=== PATIENT | female | born 1990 | race Caucasian/White ===

== ENCOUNTER 2024-03-26 18:51 | Emergency (ER) | payer OTHER ==
--- NOTE | 2024-03-26 22:23 | ED Physician Documentation ---
History of Present Illness - Stated complaint Stated Complaint: L TOE PX - Chief complaint Chief Complaint: Ext Problem - Additonal information Additional information: 33-year-old female presents emergency department for left toe inflammation and swelling and pain for concerns of ingrown toenail. NO fevers or chills, no sytemic, does not have diabetes, prone to get ingrown toe nails PD PAST MEDICAL HISTORY - Past Medical History Past Medical History: No Cardiovascular: None Respiratory: None Neuro: None Endocrine/Autoimmune: None GI: None NURSE TRANSITION: None : None HEENT: None Psych: None Musculoskeletal: None Derm: None - Past Surgical History Past Surgical History: Yes General: Appendectomy - Present Medications Home Medications: Ambulatory Orders Medication Instructions Recorded Confirmed Doxycycline [Vibramycin] 100 mg PO BID 7 Days #14 tablet 03/26/24 - Allergies Allergies/Adverse Reactions: Allergies Allergy/AdvReac Type Severity Reaction Status Date / Time No Known Drug Allergies Allergy Verified 03/26/24 19:08 - Social History Does the pt smoke?: No Smoking Status: Never smoker - Immunizations Immunizations are current?: Yes PD ED PE NORMAL - Vitals Vital signs reviewed: Yes - Free text exam Free text exam: Left toe: ingrown toenail to the medial aspect of the toe nail with purulent drainage with erythema and swelling. Results - Vitals Vitals: Oxygen O2 Source Room air PD Medical Decision Making - ED course ED course: 33-year-old female presents emergency department for left index toe ingrown toenail. It was to the medial aspect of the toenail. Patient was told that she would benefit from having Having toenail removal from podiatry she was started on doxycycline here in the emergency department given digital block for pain but it does not look severe enough to do an incision and drainage of the toenail here in the emergency department. Return precautions given prescription sent to her preferred pharmacy podiatry referral given to patient. Departure - Departure Disposition: 01 Home, Self Care Clinical Impression: Ingrown nail of great toe of right foot Instructions: Ingrown Toenails Follow-Up: Fauzia Dc DPM [Provider Admit Priv/Credential] - Brittany Palencia DPM [Physician No Access] - Prescriptions: Doxycycline [Vibramycin] 100 mg PO BID 7 Days #14 tablet Comments: Thank you for trusting us with your care. I would strongly encourage you to follow-up with the director of recreation therapy tomorrow outpatient let them know that you were seen in the emergency department for an ingrown toenail and that you were started on antibiotics and that you need to have it extracted and soon as possible. Soak in Epsom salt baths and do some gentle massaging to get any sort of purulent drainage coming out of the toenail to help until you are able to get in with podiatry. I sent the prescription to preferred pharmacy. Please come back and if you are starting to notice any fevers or chills or worsening symptoms. Forms: PCP List Discharge Date/Time: 03/26/24 22:44
[2024-03-26] MEDS: DOXYCYCLINE 100 MG TABLET PO STA (22:34)
[2024-03-26] MEDS: BUPIVACAINE 0.5% PF 10 ML VIAL SUBQ STA (22:35)
[2024-03-26 22:51] VITALS: BP 100/60; O2SAT 100
== END 2024-03-26 22:44 | disposition home or self-care (01) ==
LOC: ED 18:51
DX: L60.0 Ingrowing nail (principal)
CPT/HCPCS: 64450; 99283; A9270